=== PATIENT | male | born 2000 | race Hispanic/Latino ===

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

== ENCOUNTER 2022-01-31 14:49 | Emergency (ER) | payer SELFPAY ==
[2022-01-31] MEDS ORDERED: Xylocaine 1% w/ Epi 1:100K 10 ML VIAL ONE (15:43)
[2022-01-31] MEDS ORDERED: Lidocaine 1% PF 5 ML VIAL ONE (15:46)
== END 2022-01-31 16:41 | disposition home or self-care (01) ==
LOC: ERS 14:49
DX: S01.81XA Laceration without foreign body of other part of head, initial encounter (principal); W11.XXXA Fall on and from ladder, initial encounter
CPT/HCPCS: 12013

== ENCOUNTER 2022-02-13 14:14 | Emergency (ER) | payer SELFPAY ==
[2022-02-13] MEDS ORDERED: Fluorescein Opthalmic Strip ONE (16:00)
[2022-02-13] MEDS ORDERED: Proparacaine 0.5% Opth 15 ML BOT ONE (16:00)
== END 2022-02-13 17:01 | disposition home or self-care (01) ==
LOC: ERS 14:14
DX: Z03.821 Encounter for observation for suspected ingested foreign body ruled out (principal)
CPT/HCPCS: 99283

== ENCOUNTER 2023-06-22 18:56 | Emergency (ER) | payer SELFPAY ==
[2023-06-22] MEDS ORDERED: Dexamethasone 4 mg/ml Vial ONE ×2 (19:30→19:31)
[2023-06-22] MEDS ORDERED: Dexamethasone 4 MG TAB ONE (19:32)
== END 2023-06-22 19:36 | disposition home or self-care (01) ==
LOC: ERS 18:56
DX: T78.40XA Allergy, unspecified, initial encounter (principal)
CPT/HCPCS: 99283; J1100; J8540

== ENCOUNTER 2023-08-08 18:54 | Emergency (ER) | payer OTHER, SELFPAY ==
[2023-08-08] MEDS ORDERED: Lidocaine 1% PF 5 ML VIAL ONE (20:03)
== END 2023-08-08 20:43 | disposition home or self-care (01) ==
LOC: ERS 18:54
DX: S61.303A Unspecified open wound of left middle finger with damage to nail, initial encounter (principal); W26.8XXA Contact with other sharp object(s), not elsewhere classified, initial encounter; Y92.72 Chicken coop as the place of occurrence of the external cause
CPT/HCPCS: 11750

== ENCOUNTER 2024-01-28 17:30 | Emergency (ER) | payer SELFPAY | END 2024-01-28 17:51 | disposition home or self-care (01) | LOC: ERS 17:30 | DX: S61.210D Laceration without foreign body of right index finger without damage to nail, subsequent encounter (principal); W23.0XXD Caught, crushed, jammed, or pinched between moving objects, subsequent encounter ==